=== PATIENT | male | born 1955 | race Caucasian/White ===

== ENCOUNTER → 2024-03-26 07:18 | Outpatient (REF) | payer MEDICARE, OTHER, SELFPAY | LOC: RAD 07:18 | PROVIDERS: ATTENDING PHYSICIAN Family Medicine; REFERRING PHYSICIAN Family Medicine | DX: Z13.6 Encounter for screening for cardiovascular disorders (principal); F17.210 Nicotine dependence, cigarettes, uncomplicated | CPT/HCPCS: 71271; 76770 ==

== ENCOUNTER 2024-04-25 08:55 | Emergency (ER) | payer MEDICARE, OTHER, SELFPAY ==
[2024-04-25 09:10] VITALS: BP 169/100
--- NOTE | 2024-04-25 10:14 | ED.GENMED ---
History of Present Illness
General
Chief Complaint: Extremity Pain (non-traumatic)
Time Seen by Provider: 04/25/24 09:29
History of Present Illness
History of Present Illness:
Patient is a 69-year-old male with history of hypertension, hyperlipidemia, chronic back and neck pain presenting to the emergency department with knee pain. Patient states that he seen orthopedics before for cortisone injections in both his knee.
2 days ago he got up and felt like he tweaked his knee. He states that since that he is having difficulty and pain with his knee. He usually walks with a cane but transition to using a walker as that helped alleviate some of the knee pain. He did
take naproxen as well as an oxycodone which did alleviate the pain. He called his doctor today who told him to go to the emergency department for further evaluation. He denies any swelling numbness tingling recent trauma. No fevers or chills.
Past History
Past History
ED Past Medical History: CAD, HTN, Hypercholesterolemia and Other
ED Past Surgical History: Orthopedic and Urological
Social History
Tobacco: Former smoker
Alcohol: Daily
Drug: None
Personal:
Living: with family
Employment: Employed
Family History
Family History: CAD (maternal grandfather)
Phy Exam
Physical Exam
Physical Exam:
GENERAL: in no acute distress
HEENT: normocephalic, extraocular movements intact
NECK: normal inspection
RESPIRATORY: no respiratory distress
CARDIOVASCULAR: regular rate and rhythm
EXTREMITIES: non-tender, no edema/swelling, full range of motion of the right lower extremity with 5 out of 5 strength at the hip and knee, no joint laxity
NEUROLOGIC: awake and alert, moves all extremities
SKIN: warm
Course
Orders/Labs/Results
Orders:
Orders
04/25/24 09:20
CR Knee- Right 4 Or More View* Urgent
Comment:
Reason For Exam: pain, decreased ability to walk
04/25/24 10:12
Noah Wrap Right-Treatment ONCE
Acetaminophen [Tylenol] 1,000 mg PO NOW STA
Vital Signs
Initial and Last Documented VS:
Initial Vital Signs
Temp Pulse Resp BP Pulse Ox
97.7 F 65 18 169/100 97
04/25/24 09:10 04/25/24 09:10 04/25/24 09:10 04/25/24 09:10 04/25/24 09:10
Last Documented Vital Signs
Temp Pulse Resp BP Pulse Ox
97.7 F 65 18 169/100 97
04/25/24 09:10 04/25/24 09:10 04/25/24 09:10 04/25/24 09:10 04/25/24 09:10
MDM/Problems Addressed
Differential Diagnosis Includes:
Patient is a 69-year-old male presenting to the emergency department with 2 days of knee pain. Vitals are unremarkable and exam shows a knee with no tenderness to palpation no swelling and full range of motion. History exam not consistent with
septic arthritis or fracture or dislocation. Joint is stable. X-ray obtained prior to evaluation which per my interpretation is negative for any acute fractures or obvious effusion. Will pain control. I did educate patient on icing as well as
pain regimen. Patient will follow-up with both his primary care doctor and orthopedic surgeon. Will discharge at this time
*Critical Care Note
Total Time (30-74mins, 75-104mins- exclusive of procedures): Not Applicable
ED Attending Note
-
Portions of this chart may have been created with voice recognition software.� Occasional wrong word or��sound alike� substitutions may have occurred due to the inherent limitations of voice recognition software.
Discharge Plan
Departure
Patient Disposition: Home (Routine Discharge)
Date of Disposition: 04/25/24
Time of Disposition: 10:12
Patient with high blood pressure during this ER visit?: Yes
Discharge Problem:
Knee pain
Instructions: Knee Pain ED
Prescriptions:
No Action
aspirin 325 MG tablet,delayed release (DR/EC)
325 mg PO BID
metoprolol tartrate 50 MG tablet
50 mg PO DAILY
multivitamin [Daily Multiple] 1 EACH tablet
1 ea PO DAILY
atorvastatin 40 MG tablet
80 mg PO DAILY
nabumetone 750 MG tablet
750 mg PO BID
lisinopril-hydrochlorothiazide 1 EACH tablet
1 tab PO BID
docosahexaenoic acid-epa 1 CAP capsule
1 cap PO DAILY
dexlansoprazole [Dexilant] 60 MG capsule,biphase delayed releas
60 mg PO DAILY
glucosam-chond [id number] ac 1 EACH capsule
1 ea PO DAILY
oxycodone-acetaminophen [Percocet] 5-325 mg Tablet
1 tab PO Q6HPRN PRN (Reason: pain) Qty: 20 0RF
diclofenac potassium 50 mg tablet
50 mg PO BID Qty: 20 0RF
Activity Restrictions/Additional Instructions:
We discussed pain medications:
You may take Tylenol (also known as Acetaminophen) for pain.
You may take 1000mg Acetaminophen (two extra-strength tablets) per dose, which should be taken every 6-8 hours, or three times a day.
If you have normal strength Tylenol, you can take 650mg (two normal strength tablets) every 4-6 hours.
Do not take more than 3,000mg (3 grams) of Acetaminophen per day.
Never take more than as directed on the bottle.
You may also take Ibuprofen (also known as Motrin or Advil). If taking with Tylenol, alternate and take between dosing.
You may take 400-800mg of Ibuprofen per dose, which should be taken every 6-8 hours.
Do not take more than 3200mg (3.2 grams) of Ibuprofen per day.
Please see your primary care doctor soon to be reevaluated and to make sure that you are improving. We have included information about establishing care with a doctor if you do not have one.
We talked about your evaluation, diagnosis, and treatment in the Emergency Department today. You must see your primary doctor for recheck and followup care in order to evaluate your progress or any changes. Have your doctor recheck the test
results/information from the ED visit. As discussed, RETURN to the ED if you develop worsening/changing symptoms or have no improvement in symptoms after the treatments provided.
Interventions
Interventions:
*Risk Screen - Suicide Last Done: 04/25/24 09:10
*Neglect/Abuse Screening Last Done: 04/25/24 09:10
Discharge Date and Time
Print Language: LITHUANIAN
[2024-04-25] MEDS: TYLENOL 1000 MG PO (10:53)
[2024-04-25 11:04] VITALS: BP 148/99
== END 2024-04-25 11:10 | disposition home or self-care (01) ==
LOC: EMR 08:55
PROVIDERS: EMERGENCY PHYSICIAN Student in an Organized Health Care Education/Training Program; FAMILY PHYSICIAN Family Medicine
DX: M25.561 Pain in right knee (principal); I10 Essential (primary) hypertension; E78.00 Pure hypercholesterolemia, unspecified; Z87.891 Personal history of nicotine dependence
CPT/HCPCS: 99283; 73564

== ENCOUNTER 2024-04-26 10:24 | Emergency (ER) | payer MEDICARE, OTHER, SELFPAY ==
[2024-04-26 10:26] VITALS: BP 162/89
[2024-04-26 10:28] VITALS: BP 162/89
--- NOTE | 2024-04-26 12:49 | ED.GENMED ---
History of Present Illness
General
Chief Complaint: DVT/Possible Blood Clot
Source: patient
Time Seen by Provider: 04/26/24 11:00
History of Present Illness
History of Present Illness:
69-year-old male presents complaining of right lower extremity swelling. Patient was seen here yesterday for knee pain. He is having difficulty weightbearing due to knee pain. He can recall a specific injury. X-rays were unremarkable and an Noah
bandage was placed over the knee. Patient slept with the Noah bandage intact. He woke up with significant swelling in the right leg. He went to an urgent care where they told him to come to the emergency room for testing to rule out DVT. No chest
pain. No shortness of breath.
Past History
Past History
ED Past Medical History: CAD, HTN, Hypercholesterolemia and Other
ED Past Surgical History: Orthopedic and Urological
Social History
Tobacco: Former smoker
Alcohol: Daily
Drug: None
Personal:
Living: with family
Employment: Employed
Family History
Family History: CAD (maternal grandfather)
Phy Exam
Physical Exam
Physical Exam:
General: Awake, Alert, Oriented X3. No acute distress.
Vitals: unremarkable
Head: Atraumatic
Eyes: Pupils equal, EOMI
Throat: Airway intact, no exudates
Neck: Trachea midline
Lungs: Clear and equal b/l
Neuro: Nonfocal
Skin: Warm, dry, no rash
Extremities: pulses equal b/l, no edema. No point tenderness to palpation of the knee. Minimal pain with range of motion of the knee.
Course
Orders/Labs/Results
Orders:
Orders
04/26/24 10:31
US Periph Venous LOWER Ext RT Urgent
Comment: right knee pain
Reason For Exam: right calf swelling with pain
Vital Signs
Initial and Last Documented VS:
Initial Vital Signs
Temp Pulse Resp BP Pulse Ox
98.6 F 76 18 162/89 98
04/26/24 10:26 04/26/24 10:26 04/26/24 10:26 04/26/24 10:26 04/26/24 10:26
Last Documented Vital Signs
Temp Pulse Resp BP Pulse Ox
98.0 F 80 16 162/89 98
04/26/24 10:28 04/26/24 10:28 04/26/24 10:28 04/26/24 10:28 04/26/24 10:28
MDM/Problems Addressed
Differential Diagnosis Includes:
DVT study, Noah bandage compression causing edema, Colin's cyst
MDM/Problems Addressed:
Suspect patient has a meniscal tear. DVT study is negative. Recommend rest and Ortho follow-up.
*Radiology
Radiology exam reviewed: radiology read reviewed
*Pulse Oximetry
Patient hypoxic: no
*Critical Care Note
Total Time (30-74mins, 75-104mins- exclusive of procedures): Not Applicable
ED Attending Note
-
Portions of this chart may have been created with voice recognition software.� Occasional wrong word or��sound alike� substitutions may have occurred due to the inherent limitations of voice recognition software.
Discharge Plan
Departure
Patient Disposition: Home (Routine Discharge)
Date of Disposition: 04/26/24
Time of Disposition: 12:49
Patient with high blood pressure during this ER visit?: Yes
Condition: Good
Discharge Problem:
Right leg swelling, Right knee pain
Instructions: Meniscal tear, Knee Pain ED
Prescriptions:
No Action
aspirin 325 MG tablet,delayed release (DR/EC)
325 mg PO BID
metoprolol tartrate 50 MG tablet
50 mg PO DAILY
multivitamin [Daily Multiple] 1 EACH tablet
1 ea PO DAILY
atorvastatin 40 MG tablet
80 mg PO DAILY
nabumetone 750 MG tablet
750 mg PO BID
lisinopril-hydrochlorothiazide 1 EACH tablet
1 tab PO BID
docosahexaenoic acid-epa 1 CAP capsule
1 cap PO DAILY
dexlansoprazole [Dexilant] 60 MG capsule,biphase delayed releas
60 mg PO DAILY
glucosam-chond [id number]-wymajk-[id number] ac 1 EACH capsule
1 ea PO DAILY
oxycodone-acetaminophen [Percocet] 5-325 mg Tablet
1 tab PO Q6HPRN PRN (Reason: pain) Qty: 20 0RF
diclofenac potassium 50 mg tablet
50 mg PO BID Qty: 20 0RF
Referrals:
Miles Felix MD [Active] -
Tyrese Sandhu DO [Family Provider] -
Interventions
Interventions:
*Risk Screen - Suicide Last Done: 04/26/24 10:28
*General Assessment Last Done: 04/26/24 12:31
*Neglect/Abuse Screening Last Done: 04/26/24 10:28
*ED COVID-19 Vaccine History Last Done: 04/26/24 12:31
*Nursing Disposition Last Done: 04/26/24 12:55
ED- Cardiac Assessment Last Done: 04/26/24 12:31
ED- Pulmonary Assessment Last Done: 04/26/24 12:31
ED-Peripheral Vascular Assessment Last Done: 04/26/24 12:30
ED-Skin Assessment Last Done: 04/26/24 12:30
Discharge Date and Time
Discharge Date/Time: 04/26/24 12:56
Print Language: SENEGALESE
== END 2024-04-26 12:56 | disposition home or self-care (01) ==
LOC: EMR 10:24
PROVIDERS: EMERGENCY PHYSICIAN Emergency Medicine; FAMILY PHYSICIAN Family Medicine
DX: R22.41 Localized swelling, mass and lump, right lower limb (principal); M25.561 Pain in right knee; I25.10 Atherosclerotic heart disease of native coronary artery without angina pectoris; I10 Essential (primary) hypertension; E78.00 Pure hypercholesterolemia, unspecified; Z87.891 Personal history of nicotine dependence
CPT/HCPCS: 99284; 93971

== ENCOUNTER → 2024-06-03 12:15 | Outpatient (REF) | payer MEDICARE, OTHER, SELFPAY | LOC: HWRAD 12:15 | PROVIDERS: ATTENDING PHYSICIAN Specialist; FAMILY PHYSICIAN Family Medicine | DX: N31.9 Neuromuscular dysfunction of bladder, unspecified (principal) | CPT/HCPCS: 76775 ==